=== PATIENT | female | born 1960 | race Caucasian/White ===

== ENCOUNTER → 2020-10-23 14:11 | Outpatient (CLI) | payer BC, SELFPAY ==
--- NOTE | 2020-10-23 | DI.MG.S_ITS ---
BILATERAL DIGITAL DIAGNOSTIC MAMMOGRAM 3D/2D: 10/23/2020 CLINICAL: Right breast pain. Comparison is made to exams dated: 08/25/2018 mammogram, 08/18/2018 mammogram, and 03/17/2019 ultrasound - [facility]. There are scattered fibroglandular elements in both breasts. No mass or significant calcifications with particular attention to the right breast. Diffuse right breast pain. There is an oval cyst in the right breast at 12 o'clock anterior depth. This is not significantly changed. IMPRESSION: INCOMPLETE: NEEDS ADDITIONAL IMAGING EVALUATION No mass or significant calcifications. Stable oval cyst in the right breast remains indeterminate. A targeted right breast ultrasound is recommended and will immediately follow. This exam was interpreted at Station ID: [id number]. NOTE: For mammograms, a report in lay terms will be sent to the patient. Approximately 15% of breast malignancies will not be visualized mammographically. In the management of a palpable breast mass, a negative mammogram must not discourage biopsy of a clinically suspicious lesion. Electronically Signed By: Chon Dalton M.D. slc/:10/23/2020 15:07:57 ACR BI-RADS Category 0: Incomplete 3340F
--- NOTE | 2020-10-23 | DI.US.S_ITS ---
LIMITED ULTRASOUND OF RIGHT BREAST: 10/23/2020 CLINICAL: Patient returns today to evaluate a focal asymmetry in the right breast and to evaluate right breast pain. Comparison is made to exams dated: 10/23/2020 mammogram, 10/23/2020 mammogram [facility], 03/17/2019 ultrasound, 08/25/2018 ultrasound, and 08/25/2018 mammogram - [facility]. Color flow and real-time ultrasound of the right breast 6 o'clock, 9 o'clock, and 12 o'clock regions were performed. Rodgers scale images of the real-time examination were reviewed. No sonographic finding in the regions of pain in the right breast. There is a stable 0.9 cm x 0.6 cm x 0.3 cm oval cyst in the right breast at 12 o'clock 2 cm from the nipple. This oval cyst is hypoechoic with internal echoes. This correlates with mammography findings. Color flow imaging demonstrates that there is no vascularity present. IMPRESSION: BENIGN No sonographic evidence of malignancy. No sonographic finding in the regions of pain in the right breast. Complicated cyst in the right breast at 12:00 2 cm from the nipple demonstrates long-term stability and is benign. A 1 year screening mammogram is recommended. Exam findings were conveyed to the patient. This exam was interpreted at Station ID: [id number]. Electronically Signed By: Chon Dalton M.D. [facility] [place]/:10/23/2020 16:37:52 letter sent: Normal Exam Ultrasound BI-RADS: 2 Benign
== END ==
PROVIDERS: PCP Family Medicine; Referring Provider Family Medicine; Visit Provider Family Medicine
DX: R92.8 Other abnormal and inconclusive findings on diagnostic imaging of breast (principal); N64.4 Mastodynia; N60.01 Solitary cyst of right breast
CPT/HCPCS: 76642; 77066; G0279

== ENCOUNTER → 2023-02-10 07:59 | Outpatient (CLI) | payer BC, SELFPAY ==
--- NOTE | 2023-02-10 | DI.MG.S_ITS ---
BILATERAL DIGITAL SCREENING MAMMOGRAM 3D/2D WITH CAD: 02/10/2023 CLINICAL: Routine screening. Comparison is made to exams dated: 10/23/2020 mammogram, 10/23/2020 mammogram - [facility], and 08/25/2018 mammogram - [facility]. There are scattered areas of fibroglandular density in both breasts (category b / 25%-50% glandular tissue). Current study was also evaluated with a Computer Aided Detection (CAD) system. No significant masses, calcifications, or other findings are seen in either breast. There has been no significant interval change. IMPRESSION: NEGATIVE There is no mammographic evidence of malignancy. A 1 year screening mammogram is recommended. Based on the Tyrer Cuzick model (a risk assessment model) the patient's lifetime risk is 4.8% and her 10 year risk is 2.0%. According to the ACR, ACS, and NCCN guidelines, an annual breast MRI exam along with mammogram is recommended if the patient's lifetime risk is 20% or greater. This exam was interpreted at Station ID: [id number]. NOTE: For mammograms, a report in lay terms will be sent to the patient. Approximately 15% of breast malignancies will not be visualized mammographically. In the management of a palpable breast mass, a negative mammogram must not discourage biopsy of a clinically suspicious lesion. Electronically Signed By: Santiago caldwell/judd:02/10/2023 08:39:11 letter sent: Normal Exam ACR BI-RADS Category 1: Negative 3341F
== END ==
PROVIDERS: PCP Family Medicine; Referring Provider Family Medicine; Visit Provider Family Medicine
DX: Z12.31 Encounter for screening mammogram for malignant neoplasm of breast (principal)
CPT/HCPCS: 77063; 77067

== ENCOUNTER 2023-03-12 07:27 | Day surgery (SDC) | payer OTHER, SELFPAY ==
--- NOTE | 2023-03-12 | PATH_ITS ---
[facility] Accession Number: [id number] No. of containers..03 Tissue . 01 Material submitted: . PART A: colon - TRANSVERSE COLON POLYP PART B: rectum - RECTAL POLYP PART C: rectum - RECTAL POLYP . 01 Diagnosis: A. Transverse Colon Polyp, Biopsy: Colonic mucosa with no neoplasm identified, consistent with polypoid redundancy. . B. Rectal Polyp, Biopsy: Hyperplastic polyp. . C. Rectal Polyp, Biopsy: Colonic mucosa with hyperplastic polyp and benign lymphoid aggregates. RAMONA 03/16/2023 1351 Local . 01 Electronically signed: . Kelly Ventura MD, Pathologist NPI- [id number] . 01 Gross description: . Part A: TRANSVERSE COLON POLYP: Received in formalin is 1 fragment(s) of mendez, soft tissue measuring 0.2 x 0.1 x 0.1 cm submitted entirely in 1 cassette(s) Part B: RECTAL POLYP: Received in formalin is 1 fragment(s) of mendez, soft tissue measuring 0.3 x 0.1 x 0.1 cm submitted entirely in 1 cassette(s) Part C: RECTAL POLYP: Received in formalin is 1 fragment(s) of mendez, soft tissue measuring 0.2 x 0.2 x 0.2 cm submitted entirely in 1 cassette(s) /CPE 03/13/2023 0704 Local . 01 Pathologist provided ICD-10: D12.2, K63.89 . 01 CPT . 668006, 086968, [id number] Specimen Comment: A courtesy copy of this report has been sent to [facility] Pathology Performed at: [facility] [address], [place], [place] [id number] MD Harley Rainey MD Phone: [phone]
[2023-03-12 07:44] VITALS: BMI 29.8
[2023-03-12 07:47] VITALS: BP 138/83; PULSE 86; RESP 18; TEMP 36.4; O2SAT 99
[2023-03-12] MEDS: LACTATED RINGERS 1,000 ML 42 ML IV (07:53)
--- NOTE | 2023-03-12 08:41 | PM.HP.1 ---
History of Present Illness History of Present Illness Date Patient Seen: 03/12/23 Time Patient Seen: 08:30 Chief complaint: Colonoscopy Narrative: Ms. Rios is a 62-year-old female who has never had a colonoscopy before she is presenting for screening. She has no family history of colon cancer however she does know that her grandfather and her mother had polyps. She has no concerning symptoms no bleeding from below no changes in bowel habits and no abdominal pain except for her usual when she eats gluten she is gluten intolerant. She has no other questions. PFSH Social History household members: spouse Smoking Status: Never smoker alcohol intake: current Meds Home Medications and Allergies Home Medications Medication Instructions Recorded Confirmed Type sodium sul 1.479 gram-potas ch See Rx Instructions PO PER PKG DIR 02/06/23 03/12/23 Rx 0.188 gram-magnes sul 0.225 gram #24 tabs tablet (Sutab) albuterol sulfate 90 mcg/actuation 2 puff inhalation Q4-6H PRN 03/12/23 03/12/23 History aerosol inhaler (Ventolin HFA) Shortness Of Breath fluticasone propionate 44 2 puff inhalation BID 03/12/23 03/12/23 History mcg/actuation HFA aerosol inhaler Allergies Allergy/AdvReac Type Severity Reaction Status Date / Time No Known Drug Allergies Allergy Verified 03/12/23 07:41 Exam Vital Signs (past 8 hours): - 03/12/23 07:47 Temperature 97.6 F Pulse Rate 86 Respiratory Rate 18 Blood Pressure 138/83 Pulse Oximetry 99 Oxygen Delivery Method Room Air Oxygen Delivery Method Room Air Const General: cooperative, healthy appearing and comfortable Orientation: alert, awake and oriented x3 HENMT Head: normal to inspection Mouth: oral mucosae normal Eyes General: appearance normal, both eyes and all related structures Resp Effort & Inspection: normal respiratory effort and able to speak in complete sentences GI Palpation: soft and No tender Extrem General: normal to inspection Assessment & Plan Assessment and plan (1) Screening for colon cancer: Status: Acute Assessment & Plan narrative: Ms. Chanel presents today for screening colonoscopy I discussed the risks benefits and alternatives including but not limited to perforation of the colon and an incomplete exam she fully understands these risks and would like to proceed.
[2023-03-12 09:35] VITALS: BP 125/71; PULSE 70; RESP 14; TEMP 36.3; O2SAT 95
[2023-03-12] MEDS: ALBUTEROL 2.5 MG/3 ML NEB (ADULT) INH (09:35)
[2023-03-12 09:40] VITALS: BP 134/67; PULSE 67; RESP 20; O2SAT 100
[2023-03-12 09:45] VITALS: BP 132/64; PULSE 66; RESP 20; O2SAT 100
[2023-03-12 09:48] VITALS: BP 133/62; PULSE 72; RESP 20; O2SAT 98
--- NOTE | 2023-03-12 09:56 | SUR.PHASEII ---
holding patient in phase 2 per Anesthesiology
[2023-03-12 10:32] VITALS: BP 138/83; PULSE 86; RESP 18; TEMP 36.4; O2SAT 99
--- NOTE | 2023-03-24 16:51 | PM.OP.COLON ---
Operative Date/Time/Diagnoses Date of procedure: 03/12/23 Pre-op diagnosis: Screening for colon cancer, family history of polyps Post-op diagnosis: same Procedure & Clinicians Study performed: Colonoscopy and biopsy Same procedure as scheduled: Yes Indications: Screening and family history of colon polyps Surgeon: Adeline Lua Procedure Notes Procedure in detail: Patient was taken to the endoscopy suite and placed in the left lateral decubitus position. With the help of anesthesiologist conscious sedation was induced, monitored and maintained throughout the case. A time-out was performed. A digital rectal exam was done. The colonoscope was then introduced into the anal canal and advanced to the cecum. A photograph was obtained of the appendiceal orifice. Bowel prep was good. The scope was then withdrawn slowly for 26 minutes. In the transverse colon there was a polypoid type of lesion that was snared and removed. There were in addition to rectal polyps each of which were biopsied with a forceps and removed completely. The scope was retroflexed and a photograph was taken. The small rectal polyps are seen in this photograph. Hemorrhoidal piles were otherwise normal. Patient tolerated the procedure well and went in good condition to the postoperative care unit Specimen(s): other (1. Transverse colon polyp 2. Rectal polyp 3. Rectal polyp) Complications: none Post-procedure Plan for aftercare: Follow-up colonoscopy in 5-10 years depending on the pathology of the polyps. Fiber supplementation is recommended.
== END 2023-03-12 10:33 | disposition home or self-care (01) ==
PROVIDERS: PCP Family Medicine; Referring Provider Surgery; Visit Provider Surgery
PROC: 0DJD8ZZ Inspection of Lower Intestinal Tract, Via Natural or Artificial Opening Endoscopic (ICD-10-PCS; CPT 45378; principal; 2023-03-12 08:30)
DX: Z12.11 Encounter for screening for malignant neoplasm of colon (principal); Z83.71 Family history of colonic polyps; K62.1 Rectal polyp; K63.5 Polyp of colon
CPT/HCPCS: 45385; 45380; J2704; J7613

== ENCOUNTER → 2024-02-22 07:50 | Outpatient (CLI) | payer OTHER, SELFPAY ==
--- NOTE | 2024-02-22 07:51 | DI.MG.S_ITS ---
BILATERAL DIGITAL SCREENING MAMMOGRAM 3D/2D WITH CAD: 02/22/2024 CLINICAL: Routine screening. Comparison is made to exams dated: 02/10/2023 mammogram and 10/23/2020 mammogram - [facility]. There are scattered areas of fibroglandular density in both breasts (category b / 25%-50% glandular tissue). Current study was also evaluated with a Computer Aided Detection (CAD) system. No significant masses, calcifications, or other findings are seen in either breast. There has been no significant interval change. IMPRESSION: NEGATIVE There is no mammographic evidence of malignancy. A 1 year screening mammogram is recommended. Based on the Tyrer Cuzick model (a risk assessment model) the patient's lifetime risk is 4.6% and her 10 year risk is 2.0%. According to the ACR, ACS, and NCCN guidelines, an annual breast MRI exam along with mammogram is recommended if the patient's lifetime risk is 20% or greater. This exam was interpreted at Station ID: [id number]. NOTE: For mammograms, a report in lay terms will be sent to the patient. Approximately 15% of breast malignancies will not be visualized mammographically. In the management of a palpable breast mass, a negative mammogram must not discourage biopsy of a clinically suspicious lesion. Electronically Signed By: Chon olguin/judd:02/22/2024 08:42:34 letter sent: Normal Exam ACR BI-RADS Category 1: Negative 3341F
== END ==
LOC: MAMMO 07:50
PROVIDERS: PCP Family Medicine; Referring Provider Family Medicine; Visit Provider Family Medicine
DX: Z12.31 Encounter for screening mammogram for malignant neoplasm of breast (principal); R92.323 Mammographic fibroglandular density, bilateral breasts
CPT/HCPCS: 77063; 77067